=== PATIENT | male | born 1995 | race Caucasian/White ===

== ENCOUNTER 2022-01-31 01:07 | Emergency (ER) | payer MEDICAID ==
[~2022-01-31] VITALS: Ht 185.4 cm; Wt 96.0 kg
[2022-01-31 01:16] VITALS: BP 139/86
[2022-01-31] MEDS ORDERED: SODIUM CHLORIDE 0.9% 1,000 ML IV ONE (02:00)
[2022-01-31 02:33] LABS: HEMATOCRIT 51.1 % (42.0-52.0); HEMOGLOBIN 17.7 g/dL (14.0-18.0); MEAN CORPUSCULAR HEMOGLOBIN 29.5 pg (28.0-32.0); MEAN CORPUSCULAR VOLUME 85.3 fL (80.0-94.0); PLATELET 420 x1000/uL (130-400); RED BLOOD CELL COUNT 5.99 mill/uL (4.7-6.1); RED CELL DISTRIBUTION WIDTH 13.4 % (11.6-14.6)
[2022-01-31 02:51] LABS: CHLORIDE 96 mEq/L (98-107)
[2022-01-31 02:56] LABS: BETA HYDROXYBUTYRATE 0.5 mMol/L (0.0-0.3)
[2022-01-31] MEDS ORDERED: INSULIN LISPRO 100 UNITS/ML SUBCUT NR (03:30)
[2022-01-31] MEDS ORDERED: INSU100V37 SQ (03:42)
[2022-01-31] MEDS ORDERED: INSU100I28 SQ (03:42)
== END 2022-01-31 04:01 | disposition home or self-care (01) ==
LOC: ER 01:07
DX: E10.65 Type 1 diabetes mellitus with hyperglycemia (principal); G82.20 Paraplegia, unspecified; Z91.14 Patient's other noncompliance with medication regimen; Z79.4 Long term (current) use of insulin; Z88.0 Allergy status to penicillin
CPT/HCPCS: 36415; 80053; 82010; 82962; 85027; 93005; 96360; 96372; 99284; J1815; J7030

== ENCOUNTER 2024-02-07 02:38 | Emergency (ER) | payer MEDICAID, OTHER ==
[~2024-02-07] VITALS: Ht 167.6 cm; Wt 95.0 kg
[~2024-02-07 02:38] MED LIST: INSU100I28 SQ; INSU100V43 SQ
[2024-02-07 02:45] VITALS: O2SAT 100
[2024-02-07 03:06] VITALS: BP 143/88; PULSE 119; RESP 18; TEMP 98; O2SAT 98
[2024-02-07 03:17] LABS: CHLORIDE 101 mEq/L (98-107); POTASSIUM 4.2 mEq/L (3.5-5.1)
[2024-02-07 03:18] LABS: CALCIUM 10.3 mg/dL (8.7-10.4); CARBON DIOXIDE 27 mEq/L (21-32); SODIUM 132 mEq/L (136-145)
[2024-02-07 03:19] LABS: BASOPHILS % 0.4 % (0.0-2.0); EOSINOPHILS % 2.3 % (0.0-5.0); HEMATOCRIT. 52.7 % (42.0-52.0); HEMOGLOBIN. 17.5 g/dL (14.0-18.0); LYMPHOCYTES % 29.5 % (20.0-50.0); MEAN CORPUSCULAR HEMOGLOBIN 28.4 pg (28.0-32.0); MEAN CORPUSCULAR HGB CONC 33.1 g/dL (31.0-37.0); MEAN CORPUSCULAR VOLUME 85.7 fL (80.0-94.0); MEAN PLATELET VOLUME 8.3 fl (7.4-10.4); MONOCYTES % 7.7 % (2.0-8.0); NEUTROPHILS % 60.1 % (40.0-76.0); PLATELET 395 x1000/uL (130-400); RED BLOOD CELL COUNT 6.15 mill/uL (4.7-6.1); RED CELL DISTRIBUTION WIDTH 14.5 % (11.6-14.6); WHITE BLOOD COUNT 11.5 x1000/uL (4.5-11.0)
[2024-02-07 03:23] LABS: CREATININE 1.1 mg/dL (0.6-1.3)
[2024-02-07 03:24] LABS: UREA NITROGEN BLOOD 14 mg/dL (9-23)
[2024-02-07] MEDS ORDERED: SODIUM CHLORIDE 0.9% 1,000 ML IV NR (03:45)
[2024-02-07] MEDS ORDERED: SODIUM CHLORIDE 0.9% 1,000 ML IV ONE (03:45)
[2024-02-07] MEDS ORDERED: INSULIN REGULAR (HUMULIN R) 1000UNITS/10ML VIAL SUBCUT NR (03:45)
[2024-02-07 03:57] LABS: GLUCOSE 534 mg/dL (70-105)
[2024-02-07 04:03] LABS: PHOSPHORUS 4.2 mg/dL (2.5-4.9)
== END 2024-02-07 04:54 | disposition left against medical advice (07) ==
LOC: ER 02:38
DX: I10 Essential (primary) hypertension (principal); Z53.21 Procedure and treatment not carried out due to patient leaving prior to being seen by health care provider
CPT/HCPCS: 36415; 80048; 82962; 83735; 84100; 85025